=== PATIENT | female | born 1955 | race African-American/Black ===

== ENCOUNTER 2020-11-02 06:42 | Emergency (ER) | payer OTHER, MEDICARE ==
[~2020-11-02] VITALS: Ht 162.6 cm; Wt 80.7 kg
[~2020-11-02 06:42] MED LIST: AMLO10 PO; ASPI81EC PO; CITA20 PO; HYDCHL25 PO; HYDHCL25 PO; METCAR500 PO; PIRO10 PO; TRAM50 PO
[2020-11-02] MEDS ORDERED: Cymbalta20 MG PO (07:08)
[2020-11-02] MEDS ORDERED: PREG25 PO (07:08)
[2020-11-02] MEDS ORDERED: LISI5 PO (07:08)
[2020-11-02] MEDS ORDERED: Norco 5-325 Ta1 EACH PO (07:08)
[2020-11-02] MEDS ORDERED: KETO200 PO (07:40)
== END 2020-11-02 07:55 | disposition home or self-care (01) ==
LOC: ER 06:42
DX: L30.9 Dermatitis, unspecified (principal); I25.10 Atherosclerotic heart disease of native coronary artery without angina pectoris; I10 Essential (primary) hypertension; I25.2 Old myocardial infarction; Z79.899 Other long term (current) drug therapy
CPT/HCPCS: 99282